=== PATIENT | male | born 1965 | race Caucasian/White ===

== ENCOUNTER 2017-05-26 10:37 | Inpatient (IN) | payer OTHER ==
[~2017-05-26] VITALS: Ht 182.9 cm; Wt 105.3 kg
[~2017-05-26 10:37] MED LIST: CLONAZEPAM1 MG PO; DEPAKOTE ER500 MG PO; HALDOL DECONATE IM; PROPOXY-N/APAP1 EAC1 PO; SEROQUEL300 MG PO; SOMA350 MG PO; SULFASALAZINE500 M1 PO; TOPROL XL25 MG PO; VALIUM5 MG PO
[2017-05-26 12:16] LABS: BASOPHIL COUNT 0.1 K/uL (0-0.1); EOSINOPHIL (%) 1.8 % (0-5); EOSINOPHIL COUNT 0.1 K/uL (0-0.3); HEMATOCRIT 43.5 % (38.0-50.0); HEMOGLOBIN 14.4 G/DL (12.5-16.6); IMMATURE GRANULOCYTE (%) 0.4 % (0.0-0.7); LYMPHOCYTE (%) 28.9 % (15-42); LYMPHOCYTE COUNT 2.2 K/uL (1.0-2.8); MCH 29.4 PG (29.0-34.0); MCHC 33.1 G/DL (30.0-36.0); MCV 88.8 FL (86-99); MONOCYTE (%) 6.4 % (3-12); MONOCYTE COUNT 0.5 K/uL (0-0.8); NEUTROPHIL (%) 61.5 % (45-76); NEUTROPHIL COUNT 4.7 K/uL (1.8-6.4); PLATELET COUNT 269 K/uL (156-360); RBC DIS.WIDTH-CV 13.6 % (11.8-14.6); RBC DIS.WIDTH-SD 44.8 % (39-53); WHITE BLOOD COUNT 7.7 K/uL (4.1-10.2)
[2017-05-26 12:28] LABS: CHLORIDE 105 mEq/L (99-109); POTASSIUM 3.9 mEq/L (3.7-5.4); SODIUM 137 mEq/L (136-147)
[2017-05-26 12:30] LABS: GLUCOSE 92 mg/dL (70-99)
[2017-05-26 12:33] LABS: SERUM ETHYL ALCOHOL < 10 mg/dL
[2017-05-26 12:34] LABS: CREATININE 1.1 mg/dL (0.6-1.3); GFR ESTIMATE (CALCULATED) > 59 mL/min/ (58.99-99999)
[2017-05-26 12:35] LABS: UREA NITROGEN (BUN) 9 mg/dL (9-23)
[2017-05-26 12:52] LABS: APPEARANCE CLEAR ((CLEAR)); BILIRUBIN NEGATIVE; BLOOD SMALL; COLOR COLORLESS ((YELLOW)); GLUCOSE (STRIP) NEGATIVE; KETONES NEGATIVE; LEUKOCYTES NEGATIVE; NITRITE NEGATIVE; PROTEIN (STRIP) NEGATIVE; SPECIFIC GRAVITY 1.002 (1.000-1.030); UROBILINOGEN 0.2 MG/DL (0.2-1.0)
[2017-05-26 12:58] LABS: BACTERIA NONE SEEN /HPF; EPITHELIAL CELLS RARE /HPF; MUCUS NONE SEEN /LPF; RED BLOOD CELLS 0-5 /HPF (0-5); WHITE BLOOD CELLS 0-5 /HPF (0-5)
[2017-05-26 13:16] LABS: AMPHETAMINE NEGATIVE (500 ng/mL); BARBITURATES NEGATIVE (200 ng/mL); BENZODIAZEPINES PRESUMPTIVE POSITIVE (150 ng/mL); BUPRENORPHINE NEGATIVE (10 ng/mL); COCAINE NEGATIVE (150 ng/mL); METHADONE NEGATIVE (200 ng/mL); METHAMPHETAMINE NEGATIVE (500 ng/mL); OPIATES (MORPHINE) NEGATIVE (100 ng/mL); OXYCODONE NEGATIVE (100 ng/mL); PHENCYCLIDINE NEGATIVE (25 ng/mL); PROPOXYPHENE NEGATIVE (300 ng/mL); THC CANNABINOIDS NEGATIVE (50 ng/mL); TRICYCLIC ANTIDEPRESSANTS NEGATIVE (300 ng/mL)
[2017-05-26 13:53] LABS: BENZODIAZEPINES, URINE SCREEN POSITIVE (200 ng/mL)
[2017-05-26 14:47] VITALS: BP 105/75
[2017-05-26] MEDS ORDERED: THORAZINE200 MG PO (15:10)
[2017-05-26] MEDS ORDERED: VALIUM5 MG PO (15:11)
[2017-05-26] MEDS ORDERED: RISPERDAL1 MG PO (15:11)
[2017-05-26] MEDS ORDERED: KLONOPIN1 MG PO (15:12)
[2017-05-26 15:35] VITALS: BP 105/75
[2017-05-27 08:00] VITALS: BP 110/70
[2017-05-27 16:11] VITALS: BP 100/59
[2017-05-27 21:37] VITALS: BP 98/62
[2017-05-28 07:39] VITALS: BP 96/62
[2017-05-28 15:39] VITALS: BP 95/61
[2017-05-28 18:53] VITALS: BP 98/61
[2017-05-29 07:26] VITALS: BP 140/80
[2017-05-29 15:22] VITALS: BP 103/69
[2017-05-30 07:23] VITALS: BP 95/55
[2017-05-30 15:29] VITALS: BP 103/58
[2017-05-31 07:40] VITALS: BP 90/50
[2017-05-31] MEDS ORDERED: CHLORPROMAZINE200 MG PO (09:39)
[2017-05-31] MEDS ORDERED: RISPERDAL3 MG PO ×2 (09:40→09:46)
== END 2017-05-31 11:50 | disposition home or self-care (01) | DRG 885 ==
LOC: EME 10:37 → 1WEST 13:41 → EDOF 13:41 → ENRESERV 14:10 → 1WEST 14:40
PROVIDERS: Emergency Medicine
DX: F25.0 Schizoaffective disorder, bipolar type (principal); I10 Essential (primary) hypertension; F41.9 Anxiety disorder, unspecified; I95.9 Hypotension, unspecified; F17.200 Nicotine dependence, unspecified, uncomplicated; Z91.5 Personal history of self-harm; M45.9 Ankylosing spondylitis of unspecified sites in spine
CPT/HCPCS: 80048; 81003; 84999; 85025; 90839; 97150 GO; 97165 GO; 99281; 99285; G0480; Q0177